=== PATIENT | female | born 1990 | race Hispanic/Latino ===

== ENCOUNTER 2019-06-07 13:15 | Day surgery (SDC) | payer BC, SELFPAY ==
[2019-06-07 14:09] VITALS: BP 106/71; PULSE 120; RESP 16; TEMP 37.2; O2SAT 100; BMI 20.5
--- NOTE | 2019-06-07 14:25 | POC_PTH ---
PATIENT: POLLY BETH LOC: [facility] [place] U#:[id number] AGE/SX: 29/F ROOM: RE06/07/[address]: Dr. Kisha Reese MD : [id number] BED: DIS: 06/07/2019 SPEC #: [id number] RECD: 06/07/19 15:27 STATUS: VAN RERas #: [id number] PREMA: 06/07/19 14:[address]: Kisha Reese DEPT: SURGICAL PATHOLOGY RECD BY: Caho Diaz ENTERED: 06/11/19 08:31 SP TYPE: PROD CONC OTHR DR: Dr. Doreen Anglin MD No Primary Care Phys Tissues: Product of conception, NOS Procedures: Surgery Specimen Level IV HEADER OPERATION: Suction dilation and curettage PRE-OP DIAGNOSIS: Recurrent loss, missed x6 TISSUE SUBMITTED: Products of conception MICROSCOPIC DIAGNOSIS Products of conception: Decidua and immature chorionic villi (products of conception). AMOS:vonda 06/12/19 COMMENT Results of cytogenetic studies (Anora) will be reported later as an addendum. MICROSCOPIC DESCRIPTION Slides are reviewed. GROSS DESCRIPTION Received fresh for cytogenetic studies labeled with the patient's name is a specimen designated products of conception. The specimen consists of multiple fragments of hemorrhagic soft tissue mixed with mucoid tissue that in aggregate measure 5 x 5 x 1 cm. A portion of the specimen is submitted for cytogenetic (Anora) studies. No tissue is identified. The entire specimen is submitted in four cassettes. / AMOS:vonda 06/11/19 TC:5 CPT: 41854 ADDENDUM ADDENDUM ADDENDUM ADDENDUM ADDENDUM ADDENDUM ADDENDUM ADDENDUM 06/24/2019 10:44 ADDENDUM 06/24/2019 10:44 ADDEND 06/24/2019 10:44 ADDENDUM 06/24/2019 10:44 ADDENDUM 06/24/2019 10:44 ANORA MICROARRAY CHROMOSOME ANALYSIS WITH PARENTAL SUPPORT RESULT: Normal male MICROARRAY RESULT: arr(1-22)x2,(XY)x1 CLINICAL INTERPRETATION: Normal male result. Please see complete above mentioned report in EMR
[2019-06-07] MEDS: Lactated Ringers 1,000 ML 100 ML IV (14:36)
--- NOTE | 2019-06-07 14:53 | DCINST_ITS ---
Discharge Diet: No Restrictions Discharge Activity: Return to Normal Activity, May Shower, May Take a Tub Bath - in 2 weeks. May resume sexual activity in: 2 weeks Call your doctor if your incision/area has: Sudden Increased Bleeding, Foul Smelling Discharge Call your doctor if you observe: Fever of 101 or Higher, Using more than one pad per hour - for 2 hrs in a row Allergies/Adverse Reactions: Allergies No Known Allergies Allergy (Verified 06/04/19 09:44) Medications to take at Discharge NK 06/04/19 Primary Care Physician: Care Physician,No Primary [Primary Care Provider] - Test Results: Test results from this visit will be discussed in further detail at your follow- up appointment, if applicable. Please Follow Up With: Doreen Anglin MD - [phone] When: 2-4 weeks or as needed
[2019-06-07] MEDS: Ketorolac 30 MG/ML Syringe IV (15:00)
[2019-06-07] MEDS: HYDROmorphone 1 MG/ML Syringe IV (15:00)
--- NOTE | 2019-06-07 15:11 | OP.PCM_ITS ---
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 A bimanual examination was done and confirmed the ut erus to be 6 weeks size and [anteverted]. A weighted speculum was placed in the vagina and the anterior lip of the cervix was grasped with a single-tooth tenaculum. 20 cc of 1% Xylocaine 1-200,000 epinephrine solution was used to perform a paracervical block. The cervix was dilated serially. A 6 mm suction curette was placed to the uterine fundus and the suction was created. Several passes were made to remove clots and products of conception. When minimal tissue was returning a gentle sharp curettage was then done of the uterine cavity. The uterine cry was appreciated and another gentle pass was made with the suction curette. At this point there is no active bleeding from the uterus and minimal blood and no further products of conception were removed. The instruments removed from the cervix and the cervix was observed and no active bleeding was identified. The tenaculum was removed off the cervix and hemostasis of the tenaculum site was assured. Made of the instruments removed from the vagina and the vaginal sweep was completed by me. Sponge and needle counts were correct. The patient was taken to the recovery room in stable condition. Findings: 6 week size uterus, normal cervix and vagina. Specimen: Products of conception Grafts/Implants Used: None - Complications None - Admit VTE Documentation VTE Present on Admission: No VTE Mechan Device Prophylaxis: SCD's VTE Pharm Prophylaxis ordered?: No Reason prophylaxis not ordered:: Procedure Not Indicated
[2019-06-07 15:39] VITALS: BP 114/58; PULSE 73; RESP 16; TEMP 36.6; O2SAT 98
[2019-06-07] MEDS: Ondansetron 4 MG/2 ML Vial IM (16:01)
== END 2019-06-07 16:30 | disposition home or self-care (01) ==
LOC: SDC 13:15 → AC 13:15
PROVIDERS: Referring Provider Obstetrics & Gynecology; Visit Provider Obstetrics & Gynecology
PROC: (CPT 59812; principal; 2019-06-07 14:10)
DX: O03.4 Incomplete spontaneous abortion without complication (principal); O02.1 Missed abortion; O26.21 Pregnancy care for patient with recurrent pregnancy loss, first trimester; Z87.891 Personal history of nicotine dependence; Z3A.01 Less than 8 weeks gestation of pregnancy
CPT/HCPCS: 59812; 88305; J7120; J2405

== ENCOUNTER 2022-03-09 05:05 | Inpatient (IN) | payer BC, SELFPAY ==
[2022-03-09] VITALS (47 sets, daily range): BP systolic 94–126; BP diastolic 50–80; PULSE 54–89; RESP 16; TEMP 36.5–37.2; O2SAT 82–100; BMI 28.5
[2022-03-09] MEDS: Lactated Ringers 1,000 ML 50 ML IV (05:35)
[2022-03-09] MEDS: Lactated Ringers 500 ML 999 ML IV (05:36)
[2022-03-09 05:48] LABS: Absolute Lymphocyte Count 1.93 X10^3/uL (0.83-4.51); Basophil# 0.03 X10^3/uL; Basophil% 0.3 % (0-1); Eosinophil# 0.12 X10^3/uL; Eosinophils% 1.1 % (0-5); Hematocrit 36.8 % (37-47); Hemoglobin 12.1 g/dL (12.0-15.0); Lymphocyte # 1.93 X10^3/ul (0.83-4.51); Lymphocyte % 17.6 % (19-41); Mean Corp Hgb Conc 32.9 g/dL (32-36); Mean Corpuscular Hgb 31.8 pg (27.0-32.0); Mean Corpuscular Volume 96.6 fL (81-99); Mean Platelet Vol. 10.1 fl (6.2-12.0); Monocyte# 0.76 X10^3/uL; Monocyte% 6.9 % (0-10); NRBC Flagged by Analyzer 0 % (0-5); Neutrophil # 7.99 X10^3/uL (2.7-7.7); Neutrophil % 73.1 % (47-70); Platelet Count 247 K/mm3 (150-450); RBC Distribution Width CV 13.2 % (11.6-14.6); RBC Distribution Width SD 47.1 fl (35.1-43.9); Red Blood Count 3.81 M/mm3 (4.2-5.4); White Blood Count 10.9 K/mm3 (4.4-11.0)
--- NOTE | 2022-03-09 06:25 | PCM.HP.OB ---
HPI - General General Date of Admission: 03/09/22 HPI Narrative POLLY NASH, is a 32-year-old 5 para 1-0-3-1 who presents at 38-3/7 weeks with EDC of 03/20/2022 complaining of contractions. She denies any vaginal bleeding or leaking of fluid. She has had good movement. is complicated to date by history of previous section. She has a history of 1 previous section but she did not labor. Maternal Data Information Final BIRGIT: 03/20/22 Gestational age: 38 3/7 [facility] Medical History (Updated 03/09/22 @ 06:[address] Kisha Reese MD) Infertility Uterine anomaly Vaginal after Home Medications [id number] [] 1 tab PO DAILY 03/09/22 [History Last Taken 03/09/22] Allergy/AdvReac Type Severity Reaction Status Date / Time No Known Allergies Allergy Verified 03/09/22 05:00 Surgical History (Updated 03/09/22 @ 06:[address] Kisha Reees MD) History of gynecologic surgery Previous section Social History Smoking Status: Never smoker History Elective abortions Hx Para 1 Spontaneous abortions Hx # Term Pregnancies Ectopic pregnancies Hx # Pregnancies Multiple births # of living children ROS Constitutional Constitutional: Denies fatigue, fever(s) or malaise Eyes Eyes: Denies change in vision ENT HEENT: Denies dizziness or headache(s) Cardiovascular Cardiovascular: Denies chest pain, dyspnea or lightheadedness Respiratory/Chest Respiratory/Chest: Denies cough or dyspnea Gastrointestinal Gastrointestinal: Denies change in bowel habits Genitourinary Genitourinary: Denies burning urination or genital lesions Integumentary Integumentary: Denies rash Neurologic Neurologic: Denies confusion, dizziness, headache(s), numbness or weakness Vital Signs Vital Signs Vital Signs: 03/09/22 04:54 Temperature 97.7 F L Temperature Source Temporal Pulse Rate 54 L Blood Pressure 108/58 L BP Systolic 108 BP Diastolic 58 Weight Weight: 70.76 kg Body Mass Index (BMI) 28.5 Physical Exam Const alert and no apparent distress General Appearance: cooperative HEENT normocephalic Resp normal respiratory effort Cardio regular rate GI soft to palpation GI Narrative: gravid, nontender, appropriate for gestational age Extremity no calf tenderness General Extremity: edema Skin no wounds Rashes: No rashes noted Psych activity/motor behavior normal Labs Labs Labs: Blood Type Pending Antibody Screen Pending Hct 36.8 % (37-47) L Hgb 12.1 g/dL (12.0-15.0) Assessment & Plan (1) Active labor at term: (2) 38 weeks gestation of : (3) Previous delivery affecting : PLAN: Risk benefits and alternatives to repeat section versus trial of labor after delivery were discussed with the patient, questions were answered to her satisfaction she desires to proceed with trial of labor. Epidural as desired for pain control. Estimated weight is less than 4000 g clinically and pelvis clinically adequate to expect vaginal delivery.
[2022-03-09] MEDS: fentaNYL-bupivacaine (epidural) 100 ML BAG EPIDURAL ×2 (06:47→11:07)
[2022-03-09] MEDS: Lactated Ringers 1,000 ML 200 ML IV (11:34)
[2022-03-09] MEDS: Oxytocin 30 units/NS 500 ml 30 UNITS/500 ML IV.SOLN 334 UNITS IV (14:30)
--- NOTE | 2022-03-09 14:50 | OP.PCM_ITS ---
Assessment & Plan (1) Vaginal after : (2) Laceration, obstetrical, second degree: Maternal Data Information BIRGIT Calculator Estimated Delivery Date Method Current WG Current Estimate 03/20/22 Manual 38w 3d Vaginal Delivery Maternal Presentation Maternal Presentation: Active Labor Maternal Presentation: Patient is a at 38.3 weeks gestation that arrived to unit in spontaneous, active labor. Previous c/s x 1 and desires TOLAC. Operative Information Date of Procedure: 03/09/22 Pre-Operative Diagnosis: Term gestation, spontaneous labor Post-Operative Diagnosis: Same, viable female infant Surgery / Procedure Performed: Type of Anesthesia: Epidural Drain: Nina to straight drain Estimated Blood Loss: 250 Time of Delivery: 14:26 Findings Description of Procedure: Called to patient's room. Pushing well with contrac tions. With minimal maternal effort, delivery of head. Loose nuchal cord easily reduced. With next push infant anterior shoulder followed by remainder of infant body delivered with minimal downward traction less than 5 seconds. Vigorous female placed on maternal abdomen and attended to by nursing staff. Pitocin IV started for active management of the third stage of labor. 3 vessel cord clamped and cut by FOB after 3 minute delay. Cord blood collected and sent. Infant placed immediately skin to skin with patient. Placenta delivered spontaneously and intact. A second degree perineal laceration was repaired in usual fashion using Vicryl 3-0 Rapid. Hemostasis obtained. Vaginal sweep completed by me. All sponges and needles accounted for. Fundus firm 2 below U. EBL 250cc Apgars 9/9. Patient and bonding well at this time. Dr. Reese notified of delivery. Presentation: Vertex Amniotic Membrane Rupture Type: Artificial Time of Membrane Rupture: 728 Amniotic Fluid Description: Clear Placental Delivery Description: Spontaneous Placenta Disposition: [facility] Cord Vessel Description: 3 Vessels Cord Entanglement: Around neck x 1, loose (Around body x 1 loose) Nuchal Cord Compression: Without compression Infant A Gender: Female (1 minute): 9 (5 minute): 9 Delayed Cord Clamping: Yes Post Vaginal Delivery Medications Given After Delivery: IV Pitocin Episiotomy Description: None Laceration: 2nd degree Complication Complications: None
[2022-03-09] MEDS: Acetaminophen 500 MG Tablet 1000 MG PO (22:47)
[2022-03-10 04:40] VITALS: BP 96/46; RESP 16; TEMP 36.1; O2SAT 97
[2022-03-10] MEDS: Acetaminophen 500 MG Tablet 1000 MG PO (04:48)
--- NOTE | 2022-03-10 07:56 | PCM.PN.OB ---
Subjective Subjective Pt is doing well this morning. Having some cramping that is controlled with pain medication. Lochia is normal. She is breast-feeding without complaints. She is ambulating and voiding without difficulty. Tolerating a diet without nausea or vomiting. She denies lightheadedness, dizziness, chest pain, shortness of breath, leg pain. She desires discharge today. Objective Data Objective Data Vital Signs: Vital Signs Temp Pulse Resp BP Pulse Ox 97 F L 80 16 96/46 L 97 03/10/22 04:40 03/09/22 23:55 03/10/22 04:40 03/10/22 04:40 03/10/22 04:40 Oxygen Delivery Method Room Air Weight: 156 lb Body Mass Index (BMI) 28.5 Intake & Output: Intake and Output for Last 24 Hours 03/08/22 03/09/22 03/10/22 23:59 23:59 23:59 Intake Total 2586.67 / 2586.67 Output Total 2800 / 2800 Balance -213.33 / -213.33 Lab / Micro Data Result Diagrams: 03/09/22 05:35 Micro: Microbiology 03/09/22 05:35 Nasal Secretion SARS-CoV-2 Antigen (Rapid) - Final Physical Exam Const alert and no apparent distress General Appearance: comfortable HEENT normocephalic Resp normal respiratory effort GI soft to palpation GI Narrative: FF@U-1 Extremity no calf tenderness Assessment & Plan (1) Vaginal after : PLAN: Patient is day 1 after a vaginal after section. She is doing well and desires discharge. Discharge instructions reviewed. She has follow-up in the office in 2 weeks. (2) Laceration, obstetrical, second degree:
--- NOTE | 2022-03-10 08:02 | PCM.DC ---
Discharge Instructions Diet Discharge Diet: No restrictions Activity Discharge Activity: May Shower May resume sexual activity in: 6 weeks Ice area for (Minutes): 15 Weight Bearing Status: Weight bearing as tolerated Lifting Restrictions: nothing heavier than baby Dressing / Incision Call your doctor if you observe: Fever of 101 or Higher, Coldness, Increased Pain, Numbness or Tingling, Change in Color, Inability to urinate, Inability to have a bowel movement, Using more than 1 pad per hour, Shortness of breath, Dizziness, Fainting spells, Swelling in the ankles, Chest pain, Increased palpitations (irregular heartbeat), Calf discomfort and Uncontrolled pain Cleanse incision/area with: Soap & Water Follow Up Care When: 2 weeks - can change it to virtual if you want 6 weeks - in person visit Test Results: Test results from this visit will be discussed in further detail at your follow-up appointment, if applicable. Discharge Plan Admission Admit Date/Time: 03/09/22 05:05 Primary Reason for Your Visit: Delivery Attending Provider: Kathryn Starr Primary Care Provider: Care ,Rufina Primary Instructions Patient Instructions: After a Vaginal Discharge Orders/Prescriptions Prescriptions: New ibuprofen 600 mg tablet 600 mg PO Q6H PRN (Reason: pain) Qty: 30 RF: 0 Continued [id number] 1 mg Tablet 1 tab PO DAILY RF: 0 Referrals / Follow Up: Care Physician,No Primary [Primary Care Provider] - Disposition Disposition (needs filled in before D/C Order can be placed): Home, Self Care
[2022-03-10 09:06] VITALS: BP 96/51; PULSE 58; RESP 16; TEMP 36.4; O2SAT 98
[2022-03-10 12:23] VITALS: BP 96/44; PULSE 56; RESP 18; TEMP 36.9
== END 2022-03-10 17:30 | disposition home or self-care (01) | DRG 807 ==
LOC: WPOUT 05:07 → WP 05:07
PROVIDERS: Obstetrics & Gynecology; Admitting Provider Advanced Practice Midwife; Visit Provider Advanced Practice Midwife
DX: O34.219 Maternal care for unspecified type scar from previous cesarean delivery (principal); Z37.0 Single live birth; O69.81X0 Labor and delivery complicated by cord around neck, without compression, not applicable or unspecified; O70.1 Second degree perineal laceration during delivery; Z3A.38 38 weeks gestation of pregnancy
CPT/HCPCS: 59025; 59050; 85025; 86850; 86900; 86901; 87426; 99218; J7120; G0378